=== PATIENT | male | born 1965 | race Asian ===

== ENCOUNTER 2021-04-02 10:20 | Day surgery (SDC) | payer OTHER ==
[~2021-04-02] VITALS: Ht 177.8 cm; Wt 99.8 kg
[2021-04-02] MEDS ORDERED: CEFAZOLIN 1 GM IVPB PREMIX 50 ML IV ONE (11:12)
[2021-04-02] MEDS ORDERED: SUCCINYLCHOLINE CHLORIDE 20 MG/ML(QUELICIN) IVP ONE (11:24)
[2021-04-02] MEDS ORDERED: fentaNYL CITRATE/PF 100 MCG/2 ML AMP IVP ONE (11:24)
[2021-04-02] MEDS ORDERED: LIDOCAINE/EPI 1% 1:100000 20 ML VIAL INJ ONE (11:24)
[2021-04-02] MEDS ORDERED: LR 1,000 ML IV.SOLN IV ONE (11:24)
[2021-04-02] MEDS ORDERED: SEVOFLURANE 15 MIN GAS INH ONE (11:24)
[2021-04-02] MEDS ORDERED: DEXAMETHASONE SOD PHOSPHATE 4 MG/ML VIAL IVP ONE (11:24)
[2021-04-02] MEDS ORDERED: NS IRRIG SOLN 1000 ML IR ONE (11:24)
[2021-04-02] MEDS ORDERED: ONDANSETRON HCL 4 MG/2 ML VIAL IVP ONE (11:24)
[2021-04-02] MEDS ORDERED: MIDAZOLAM HCL 5 MG/5 ML VIAL IVP ONE (11:24)
[2021-04-02] MEDS ORDERED: PROPOFOL 200MG/ 20ML VIAL (DIPRIVAN) IV ONE (11:24)
[2021-04-02] MEDS ORDERED: ONDANSETRON HCL 4 MG/2 ML VIAL IVP PRN ×2 (12:30→15:30)
[2021-04-02] MEDS ORDERED: HYDROmorphone 1 INJ. 1 MG/ML CARTRIDGE IVP PRN (12:30)
[2021-04-02] MEDS ORDERED: THROMBIN (BOVINE) 5000 UNITS/ VIAL TP ONE (12:53)
[2021-04-02] MEDS ORDERED: NORMAL SALINE 5 ML DISP.SYRIN IVF SCH (14:00)
[2021-04-02 14:47] VITALS: BP_SYST 121
[2021-04-02] MEDS: HYDROcodone/ACETAMIN 5-325 MG TAB (NORCO/ VICODIN) PO PRN ×2 (18:40→23:30)
[2021-04-02 20:00] VITALS: BP_SYST 153
[2021-04-02] MEDS ORDERED: LISI10TA29 PO (20:58)
[2021-04-02] MEDS ORDERED: ALLO300T2 PO (20:58)
[2021-04-02] MEDS ORDERED: LIP40 PO (20:58)
[2021-04-02] MEDS: NORMAL SALINE 5 ML DISP.SYRIN IVF SCH (21:45)
[2021-04-03 00:18] VITALS: BP_SYST 153
[2021-04-03 00:50] VITALS: BP_SYST 153
[2021-04-03 02:43] VITALS: BP_SYST 153
[2021-04-03] MEDS: NORMAL SALINE 5 ML DISP.SYRIN IVF SCH (05:34)
[2021-04-03 08:00] VITALS: BP_SYST 117
[2021-04-03] MEDS ORDERED: LISINOPRIL 10 MG TABLET (PRINIVIL) PO SCH (09:00)
[2021-04-03 10:17] VITALS: BP_SYST 117
== END 2021-04-03 11:10 | disposition home or self-care (01) ==
LOC: SDS 10:20 → SMU 10:22 → EDSTATUS 12:30 → SMU 14:34 → SDS 04-03 11:10
PROVIDERS: ATTEND Otolaryngology Plastic Surgery within the Head & Neck
DX: E04.1 Nontoxic single thyroid nodule (principal); D44.0 Neoplasm of uncertain behavior of thyroid gland; I10 Essential (primary) hypertension; E66.01 Morbid (severe) obesity due to excess calories; E78.5 Hyperlipidemia, unspecified; G47.30 Sleep apnea, unspecified; Z88.1 Allergy status to other antibiotic agents; Z99.89 Dependence on other enabling machines and devices
CPT/HCPCS: 60220; 87081; 88307; 94660; C1782; J0330; J0690; J1100; J2250; J2405; J2704; J3010; J7120